=== PATIENT | female | born 1985 | race Hispanic/Latino ===

== ENCOUNTER 2019-04-26 23:16 | Emergency (ER) | payer OTHER ==
[~2019-04-26] VITALS: Ht 165.1 cm; Wt 98.9 kg
--- OUTSIDE RECORDS SUMMARY | 2019-04-26 23:18 | XMS REPORT | Clinical Summary ---
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 tablet Active Problems No known active problems Social History Date Tobacco Use Types Packs/Day Years Used Former Smoker Smokeless Tobacco: Never Used Drinks/Week oz/Week Comments Alcohol Use No Sex Assigned at Date Recorded Not on file Industry Job Start Date Occupation Not on file Not on file Not on file Travel End Travel History Travel Start No recent travel history available. 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
[2019-04-26] MEDS ORDERED: METHYLPREDNISOLONE SOD SUCC 125 MG/2ML VIAL IV ONE (23:30)
[2019-04-26] MEDS ORDERED: ALBUTEROL/IPRATROPIUM 3 ML NEB NEB ONE ×2 (23:30)
[2019-04-26] MEDS ORDERED: METHYLPREDNISOLONE SOD SUCC 125 MG/2ML VIAL ONE (23:38)
[2019-04-26] MEDS ORDERED: ALBUTEROL/IPRATROPIUM 3 ML NEB ONE (23:38)
[2019-04-26] MEDS ORDERED: VENTOLIN HFA18 GM IH (23:48)
[2019-04-26] MEDS ORDERED: PREDNISONE20 MG PO (23:48)
[2019-04-26] MEDS ORDERED: AZITHROMYCIN250 MG PO (23:48)
[2019-04-26] MEDS ORDERED: TESSALON PERLE100 MG PO (23:48)
[2019-04-27] MEDS ORDERED: ALBUTEROL S5 MG/1 ML INH (00:16)
--- NOTE | 2019-04-27 00:38 | Diagnostic Imaging Report ---
EXAMINATION: CXR 2 VIEW - HOPD INDICATION: Short of breath COMPARISON: None FINDINGS: TUBES and LINES: None. LUNGS: Lungs are well inflated. Lungs are clear. There is no evidence of pneumonia or pulmonary edema. PLEURA: No pleural effusion or pneumothorax. HEART AND MEDIASTINUM: The cardiomediastinal silhouette is unremarkable. BONES AND SOFT TISSUES: No acute osseous lesion. Soft tissues are unremarkable. UPPER ABDOMEN: No free air under the diaphragm. IMPRESSION: No acute thoracic radiographic abnormality. Signed by: Nic Alicia DO on 04/27/2019 12:35 AM
--- NOTE | 2019-04-27 01:16 | NUR ---
BLOOD SENT TO [facility] FOR CARDIACS TO BE RUN.
[2019-04-27 01:49] VITALS: BP 109/66
== END 2019-04-27 01:51 | disposition home or self-care (01) ==
LOC: FSED 23:16
DX: J20.9 Acute bronchitis, unspecified (principal)
CPT/HCPCS: 36415; 71046; 80053; 84484; 85025; 85379; 93005; 96374; 99284; J2930

== ENCOUNTER 2019-07-11 15:08 | Emergency (ER) | payer OTHER ==
[~2019-07-11] VITALS: Ht 167.6 cm; Wt 102.8 kg
[~2019-07-11 15:08] MED LIST: ALBUTEROL S5 MG/1 ML INH; AZITHROMYCIN250 MG PO; PREDNISONE20 MG PO; TESSALON PERLE100 MG PO; VENTOLIN HFA18 GM IH
--- OUTSIDE RECORDS SUMMARY | 2019-07-11 15:11 | XMS REPORT ---
Author Author [facility] Address Unknown Phone Unavailable Care Team Providers Care Senior Javascript Developer Name Role Phone Luz VALLE Unavailable Unavailable Problems This patient has no known problems. Allergies, Adverse Reactions, Alerts This patient has no known allergies or adverse reactions. Medications This patient has no known medications. Results Test Description Test Time Test Comments Text Results Atomic Results Result Comments CXR 2 VIEW - HOPD 2019-04-27 00:34:00 [place] [id number] Patient Name: JOAQUIN NIETO MR #: [id number] : 1985 Age/Sex: 33/F Req #: [id number] Adm Physician: Ordered by: BECK VALLE MD Report #: [id number] [facility] Room/Bed: Procedure: [id number] HOPD/CXR 2 VIEW - HOPD Exam Date: Exam Time: REPORT STATUS: Signed EXAMINATION: CXR 2 VIEW - HOPD INDICATION: Short of breath COMPARISON: None FINDINGS: TUBES and LINES: None. LUNGS: Lungs are well inflated. Lungs are clear. There is no evidence of pneumonia or pulmonary edema. PLEURA: No pleural effusion or pneumothorax. HEART AND MEDIASTINUM: The cardiomediastinal silhouette is unremarkable. BONES AND SOFT TISSUES: No acute osseous lesion. Soft tissues are unremarkable. UPPER ABDOMEN: No free air under the diaphragm. IMPRESSION: No acute thoracic radiographic abnormality. Signed by: Nic Alicia DO on 04/27/2019 12:35 AM Dictated By: NIC ALICIA DO Transcribed By: NELSON on 04/27/1934 COPY TO: BECK VALLE MD
[2019-07-11] MEDS ORDERED: ZOFRAN8 MG PO (15:43)
[2019-07-11] MEDS ORDERED: VALIUM2 MG PO (15:43)
[2019-07-11] MEDS ORDERED: MECLIZINE HCL25 MG PO (15:43)
[2019-07-11] MEDS ORDERED: ONDANSETRON HCL INJ 2MG/ML 2ML 2 MG/ML VIAL IV ONE (15:56)
[2019-07-11] MEDS ORDERED: DIAZEPAM INJ 5 MG/ML 2 ML IV ONE (16:00)
[2019-07-11] MEDS ORDERED: SODIUM CHLORIDE 0.9% 1000ML 1,000 ML IV SCH (16:00)
[2019-07-11] MEDS ORDERED: ONDANSETRON HCL INJ 2MG/ML 2ML 2 MG/ML VIAL ONE (16:24)
--- NOTE | 2019-07-11 16:24 | Diagnostic Imaging Report ---
CT Brain WITHOUT IV Contrast HISTORY: Dizziness COMPARISON: No relevant prior examinations available. TECHNIQUE: Head CT was performed without administration of intravenous contrast material. FINDINGS: There is no evidence of large territorial infarction, intracranial mass lesion or acute intracranial hemorrhage. The brain parenchyma appears normal. The ventricles, sulci, and cisterns are within normal limits in size and configuration. The paranasal sinuses are unremarkable. The mastoid air cells are well-aerated bilaterally. The bones are unremarkable. The globes and orbits are unremarkable. The visualized pharyngeal structures are within normal limits. IMPRESSION: No evidence of acute intracranial hemorrhage, territorial infarction or intracranial mass lesion. Signed by: Chantell Cheney MD on 07/11/2019 4:21 PM
[2019-07-11] MEDS ORDERED: DIAZEPAM INJ 5 MG/ML 2 ML ONE (16:25)
[2019-07-11] MEDS ORDERED: SODIUM CHLORIDE 0.9% 1000ML 1,000 ML ONE (16:25)
[2019-07-11 17:24] VITALS: BP 121/65
== END 2019-07-11 17:35 | disposition home or self-care (01) ==
LOC: FSED 15:08
DX: H81.10 Benign paroxysmal vertigo, unspecified ear (principal); F17.200 Nicotine dependence, unspecified, uncomplicated
CPT/HCPCS: 70450; 80053; 81003; 81025; 85025; 93005; 96374; 96375; 99284; J2405; J3360; J7030

== ENCOUNTER 2020-06-14 15:38 | Emergency (ER) | payer OTHER ==
[~2020-06-14] VITALS: Ht 167.6 cm; Wt 102.5 kg
[~2020-06-14 15:38] MED LIST changes: +MECLIZINE HCL25 MG PO; +VALIUM2 MG PO; +ZOFRAN8 MG PO
[2020-06-14 16:44] LABS: BASOPHILS # (AUTO) 0.1 (0.0-0.1); EOSINOPHILS # (AUTO) 0.5 (0.0-0.4); EOSINOPHILS % 4.4 % (0.0-6.0); HEMATOCRIT 38.5 % (34.2-44.1); HEMOGLOBIN 13.1 g/dL (12.0-16.0); LYMPHOCYTES # (AUTO) 1.7 (1.0-3.2); LYMPHOCYTES % 16.1 % (18.0-39.1); MEAN CORPUSCULAR HEMOGLOBIN 34.3 pg (28-32); MEAN CORPUSCULAR VOLUME 100.8 fL (81-99); MONOCYTES # (AUTO) 0.4 (0.2-0.8); MONOCYTES % 3.9 % (4.4-11.3); NEUTROPHILS # (AUTO) 7.7 (2.1-6.9); NEUTROPHILS % 73.9 % (38.7-80.0); PLATELET COUNT 243 x10e3/uL (140-360); RED BLOOD COUNT 3.82 x10e6/uL (3.6-5.1); RED CELL DISTRIBUTION WIDTH 13.1 % (11.7-14.4)
[2020-06-14 17:01] LABS: ALANINE AMINOTRANSFERASE 39 IU/L (0-55); ALBUMIN 3.6 g/dL (3.5-5.0); ALBUMIN/GLOBULIN RATIO 1.2 (0.8-2.0); ALKALINE PHOSPHATASE 78 IU/L (40-150); ANION GAP 13.7 mmol/L (8-16); BLOOD UREA NITROGEN 8 mg/dL (7-26); BUN/CREATININE RATIO 10 (6-25); CARBON DIOXIDE 23 mmol/L (22-29); CHLORIDE 109 mmol/L (98-107); CREATININE, SERUM 0.82 mg/dL (0.57-1.11); EST GLOMERULAR FILTRATION RATE > 60 ML/MIN (60-); GLUCOSE 124 mg/dL (74-118); POTASSIUM 3.7 mmol/L (3.5-5.1); SODIUM 142 mmol/L (136-145)
[2020-06-14] MEDS ORDERED: IOPAMIDOL 370 MG/ML 200 ML INFUS..BTL INJ ONE (18:24)
[2020-06-14] MEDS ORDERED: SODIUM CHLORIDE 0.9% 50ML 50 ML ONE (18:24)
[2020-06-14] MEDS ORDERED: KETOROLAC TROMETHAMINE 60 MG/2 ML VIAL IM ONE (20:30)
[2020-06-14] MEDS ORDERED: KETOROLAC TROMETHAMINE 30 MG/ML VIAL ONE (21:18)
[2020-06-14] MEDS ORDERED: KETOROLAC TROMETHAMINE 30 MG/ML VIAL IV STA (21:19)
== END 2020-06-14 21:28 | disposition home or self-care (01) ==
LOC: ER 16:15
DX: N63.10 Unspecified lump in the right breast, unspecified quadrant (principal); F17.210 Nicotine dependence, cigarettes, uncomplicated
CPT/HCPCS: 36415; 71260; 80053; 84702; 85025; 99284; J1885; Q9967

== ENCOUNTER 2021-12-20 19:38 | Emergency (ER) | payer OTHER ==
[~2021-12-20] VITALS: Ht 167.6 cm; Wt 102.5 kg
[2021-12-20] MEDS ORDERED: ONDANSETRON HCL INJ 2MG/ML 2ML 2 MG/ML VIAL IV STA (19:51)
[2021-12-20] MEDS ORDERED: KETOROLAC TROMETHAMINE 30 MG/ML VIAL IV STA (19:51)
[2021-12-20 20:02] LABS: BASOPHILS # (AUTO) 0.1 (0.0-0.1); BASOPHILS % 0.8 % (0.0-1.0); EOSINOPHILS # (AUTO) 0.3 (0.0-0.4); EOSINOPHILS % 2.9 % (0.0-6.0); HEMATOCRIT 36.9 % (34.2-44.1); LYMPHOCYTES # (AUTO) 2.2 (1.0-3.2); LYMPHOCYTES % 18.7 % (18.0-39.1); MEAN CORPUSCULAR HGB CONC 32.5 g/dL (31-35); MEAN CORPUSCULAR VOLUME 92.3 fL (81-99); MONOCYTES # (AUTO) 0.8 (0.2-0.8); MONOCYTES % 6.7 % (4.4-11.3); NEUTROPHILS # (AUTO) 8.4 (2.1-6.9); NEUTROPHILS % 70.3 % (38.7-80.0); PLATELET COUNT 219 x10e3/uL (140-360); RED CELL DISTRIBUTION WIDTH 13.1 % (11.7-14.4)
[2021-12-20 20:12] LABS: INR 0.88; PROTHROMBIN TIME 12.8 seconds (11.9-14.5)
[2021-12-20 20:22] LABS: ALBUMIN 3.5 g/dL (3.5-5.0); ALBUMIN/GLOBULIN RATIO 0.8 (0.8-2.0); ANION GAP 13.7 mmol/L (8-16); CALCIUM 9.3 mg/dL (8.4-10.2); CREATININE, SERUM 0.93 mg/dL (0.57-1.11); POTASSIUM 3.7 mmol/L (3.5-5.1)
[2021-12-20] MEDS ORDERED: IOPAMIDOL 370 MG/ML 100 ML INFUS..BTL INJ ONE (20:39)
[2021-12-20 20:41] LABS: CREATINE KINASE MB 0.2 ng/mL (0-5.0)
[2021-12-20 21:46] VITALS: BP 132/51
== END 2021-12-20 21:47 | disposition home or self-care (01) ==
LOC: ER 19:42
DX: R07.89 Other chest pain (principal); Z85.3 Personal history of malignant neoplasm of breast; R94.31 Abnormal electrocardiogram [ECG] [EKG]
CPT/HCPCS: 36415; 71260; 80053; 82550; 82553; 84484; 84702; 85025; 85379; 85610; 85730; 99283; J1885; J2405; Q9967

== ENCOUNTER 2022-03-20 23:07 | Emergency (ER) | payer OTHER ==
[~2022-03-20] VITALS: Ht 167.6 cm; Wt 102.5 kg
[2022-03-20] MEDS ORDERED: IBUPROFEN 600 MG TAB PO STA (23:26)
[2022-03-20] MEDS ORDERED: SODIUM CHLORIDE 0.9% 1000ML 1,000 ML IV ONE (23:30)
[2022-03-20 23:38] LABS: BASOPHILS % 0.6 % (0.0-1.0); EOSINOPHILS # (AUTO) 0.1 (0.0-0.4); EOSINOPHILS % 1.2 % (0.0-6.0); HEMATOCRIT 34.4 % (34.2-44.1); HEMOGLOBIN 11.5 g/dL (12.0-16.0); LYMPHOCYTES # (AUTO) 0.3 (1.0-3.2); LYMPHOCYTES % 4.1 % (18.0-39.1); MEAN CORPUSCULAR HEMOGLOBIN 30.1 pg (28-32); MEAN CORPUSCULAR HGB CONC 33.4 g/dL (31-35); MEAN CORPUSCULAR VOLUME 90.1 fL (81-99); MONOCYTES # (AUTO) 0.4 (0.2-0.8); NEUTROPHILS % 87.7 % (38.7-80.0); PLATELET COUNT 216 x10e3/uL (140-360); RED BLOOD COUNT 3.82 x10e6/uL (3.6-5.1); RED CELL DISTRIBUTION WIDTH 12.9 % (11.7-14.4)
[2022-03-21] MEDS ORDERED: BEBTELOVIMAB 175 MG INJ IV ONE (00:30)
[2022-03-21 00:33] LABS: ALBUMIN 3.4 g/dL (3.5-5.0); ALBUMIN/GLOBULIN RATIO 0.9 (0.8-2.0); ANION GAP 14.5 mmol/L (8-16); CALCIUM 8.7 mg/dL (8.4-10.2); CREATININE, SERUM 0.97 mg/dL (0.57-1.11); POTASSIUM 3.5 mmol/L (3.5-5.1)
[2022-03-21] MEDS ORDERED: IOPAMIDOL 370 MG/ML 100 ML INFUS..BTL INJ ONE (01:00)
[2022-03-21 01:48] LABS: CLARITY,URINE SL CLOUDY (CLEAR); COLOR,URINE YELLOW (YELLOW)
[2022-03-21 01:49] LABS: KETONES,URINE NEGATIVE (NEGATIVE); LEUKOCYTE ESTERASE ,URINE SMALL (NEGATIVE); NITRITE,URINE NEGATIVE (NEGATIVE); PROTEIN,URINE DIPSTICK NEGATIVE (NEGATIVE); URINE UROBILINOGEN 0.2 mg/dL (0.2 - 1)
[2022-03-21 01:53] LABS: BACTERIA,URINE FEW /HPF; EPITHELIAL CELLS,URINE FEW /LPF; RBC,URINE 0-5 /HPF (0-5)
[2022-03-21 02:56] VITALS: BP 104/72
== END 2022-03-21 02:45 | disposition home or self-care (01) ==
LOC: ER 23:23
DX: R50.9 Fever, unspecified (principal); U07.1 COVID-19; R10.84 Generalized abdominal pain; Z85.3 Personal history of malignant neoplasm of breast
CPT/HCPCS: 36415; 71045; 74177; 80053; 81001; 83605; 84702; 85025; 87040; 87086; 99284; J0696; J7030; Q9967; U0002

== ENCOUNTER 2023-02-01 00:47 | Emergency (ER) | payer OTHER ==
[~2023-02-01] VITALS: Ht 167.6 cm; Wt 102.5 kg
[2023-02-01 00:52] VITALS: O2SAT 100
[2023-02-01] MEDS ORDERED: KETOROLAC TROMETHAMINE 60 MG/2 ML VIAL ONE (01:14)
[2023-02-01] MEDS ORDERED: KETOROLAC TROMETHAMINE 60 MG/2 ML VIAL IM ONE (01:15)
== END 2023-02-01 01:35 | disposition home or self-care (01) ==
LOC: ER 00:54
DX: G89.18 Other acute postprocedural pain (principal); Z85.3 Personal history of malignant neoplasm of breast
CPT/HCPCS: 99282; J1885

== ENCOUNTER 2025-03-21 18:04 | Emergency (ER) | payer OTHER ==
[~2025-03-21 18:04] MED LIST changes: +CEPHALEXIN500 MG PO; +ELIQUIS5 MG PO; +HYDROCODON-ACE1 EA11 PO; +METRONIDAZOLE500 MG PO; +ONDANSETRON ODT4 MG PO; +PEPCID20 MG PO
== END 2025-03-21 18:40 | disposition short-term general hospital (02) ==
LOC: ER 18:40
DX: R06.02 Shortness of breath (principal)

== ENCOUNTER 2025-03-21 18:22 | Emergency (ER) | payer MEDICAID, OTHER ==
[~2025-03-21] VITALS: Ht 162.6 cm; Wt 101.2 kg
[2025-03-21 18:23] VITALS: TEMP 98.2
[2025-03-21 19:20] VITALS: PULSE 101; RESP 19
[2025-03-21] MEDS: SODIUM CHLORIDE 0.9% 1000ML 1,000 ML IV ONE (19:29)
[2025-03-21] MEDS: ALBUTEROL/IPRATROPIUM 3 ML NEB NEB ONE (19:29)
[2025-03-21 19:45] VITALS: BP 119/79; PULSE 101; RESP 19; TEMP 99; O2SAT 95
== END 2025-03-21 19:45 | disposition home or self-care (01) ==
LOC: FSED 18:44
DX: R06.02 Shortness of breath (principal); J06.9 Acute upper respiratory infection, unspecified; R05.9 Cough, unspecified; Z11.52 Encounter for screening for COVID-19; Z85.3 Personal history of malignant neoplasm of breast
CPT/HCPCS: 0223U; 80053; 85025; 85379; 87400; 87420; 99283; J7030

== ENCOUNTER 2025-03-29 09:25 | Emergency (ER) | payer MEDICAID ==
[~2025-03-29] VITALS: Ht 160 cm; Wt 98.2 kg
[2025-03-29 09:29] VITALS: TEMP 97.9
[2025-03-29] MEDS ORDERED: MOUNJARO5 MG/0.5 M (10:02)
[2025-03-29] MEDS: ONDANSETRON HCL INJ 2MG/ML 2ML 2 MG/ML VIAL IV STA (10:26)
[2025-03-29] MEDS: SODIUM CHLORIDE 0.9% 1000ML 1,000 ML IV ONE (10:26)
[2025-03-29] MEDS: FAMOTIDINE 20 MG/2 ML VIAL IV STA (10:27)
[2025-03-29] MEDS: ALBUTEROL/IPRATROPIUM 3 ML NEB NEB ONE (10:27)
[2025-03-29 10:42] VITALS: PULSE 93; RESP 20
[2025-03-29] MEDS ORDERED: IOPAMIDOL 370 MG/ML 100 ML INFUS..BTL INJ ONE (11:18)
[2025-03-29] MEDS ORDERED: VENTOLIN HFA18 GM INH (14:05)
[2025-03-29] MEDS ORDERED: AZITHROMYCIN500 MG PO (14:06)
[2025-03-29] MEDS: AZITHROMYCIN 250 MG TAB PO ONE (14:26)
[2025-03-29 14:32] VITALS: PULSE 90; RESP 18; O2SAT 96
== END 2025-03-29 14:35 | disposition home or self-care (01) ==
LOC: FSED 09:29
DX: R06.02 Shortness of breath (principal); J18.9 Pneumonia, unspecified organism; R05.9 Cough, unspecified; R91.8 Other nonspecific abnormal finding of lung field; Z11.52 Encounter for screening for COVID-19
CPT/HCPCS: 0223U; 71260; 80053; 81003; 81025; 83518; 85025; 87400; 96374; 96375; 99284; J0696; J1308; J2405; J7030; Q9967